=== PATIENT | female | born 1965 | race Caucasian/White ===

== ENCOUNTER 2016-11-07 19:34 | Emergency (ER) | payer SELFPAY ==
--- NOTE | ~2016-11-07 | ER ---
PATIENT'S NAME: BENNIE SALDANA [facility] AGE: 51 Y [address] ROOM: [place] [id number] LOCATION: [facility] ADMIT DATE: 11/07/2016 ER/Outpatient Report DISCHARGE DATE: 11/07/2016 FAMILY PHYSICIAN: , Unknown ATTENDING PHYSICIAN: Pk Gilbert Time of Arrival: 1929 hours. Time of Evaluation: 1929 hours. CHIEF COMPLAINT: Headache. HISTORY OF PRESENT ILLNESS: The patient is a 51-year-old female who presents to the emergency department today with chief complaint of headache. She reports that it started about 3 to 4 days prior to arrival. She has nausea, vomiting, abdominal pain, chest pain, she got diarrhea as well. She reports 6 episodes of diarrhea in the past 24 hours as well as 8 episodes of vomiting in the past 24 hours. She complains of neck pain. She reports subjective fevers and chills. Denies that this is the worst headache of her life. It is not sudden onset, it has progressively worsened. It feels like it is coming from her neck. It is a sharp-type pain. No thunderclap. PAST MEDICAL HISTORY: Anxiety, hypertension. PAST SURGICAL HISTORY: . SOCIAL HISTORY: The patient smokes half pack per day for 15 years. Drinks alcohol once in a while. Denies any illicit drug use. ALLERGIES: THE PATIENT DOES NOT KNOW HER ALLERGIES. MEDICATIONS: Please see list. PRIMARY CARE DOCTOR: In [place]. REVIEW OF SYSTEMS: All systems are reviewed by myself and are negative with the exception of those discussed in HPI and past medical history. PATIENT'S NAME: BENNIE SALDANA [facility] AGE: 51 Y [address] ROOM: [place] [address] LOCATION: [facility] ADMIT DATE: 11/07/2016 ER/Outpatient Report DISCHARGE DATE: 11/07/2016 FAMILY PHYSICIAN: Physician, Unknown ATTENDING PHYSICIAN: Pk Gilbert PHYSICAL EXAMINATION: VITAL SIGNS: Weight 56 kilograms, blood pressure 106/75, pulse 89, respiratory rate 16, temperature 98.2, oxygen saturation 97% on room air. GENERAL: The patient is a 51-year-old female who appears stated age, in no acute distress. She does have a smell of alcohol. HEENT: Head; normocephalic, atraumatic. Pupils are equal, round, and reactive to light. Extraocular motions are intact. Nares are patent bilaterally. TMs are clear. Oropharynx is clear. NECK: Supple. There is no nuchal rigidity. She does have some diffuse tenderness to palpation in bilateral paraspinal musculature, worse on the right. CARDIOVASCULAR: Regular rate and rhythm. No murmurs, rubs, or gallops. LUNGS: Clear to auscultation bilaterally. No wheezes, rales, or rhonchi. ABDOMEN: Soft, nontender, and nondistended. No rebound, rigidity, or guarding. MUSCULOSKELETAL: The patient moves all 4 extremities. NEUROLOGICAL: GCS 15. Alert and oriented. SKIN: Warm and dry. LABORATORY DATA AND X-RAYS: Labs and x-rays are obtained. CT scan of the brain and C-spine are obtained. I have discussed the results with the radiologist. CT scan of the brain is negative. CT scan of the C-spine shows degenerative changes. EKG is obtained, interpreted by myself at 1954 hours, shows sinus rhythm with a rate of 82, normal axis, normal interval; no ST elevation, ST depression, T-wave inversions. Lactate and procalcitonin are normal. CBC is normal. Coags are normal. CMP is unremarkable. LFTs normal. Cardiac enzymes are normal. Magnesium is normal. Alcohol is elevated at 0.268. IMPRESSION: 1. Acute cephalgia, suspect migraine type. 2. Alcohol intoxication. 3. Initial visit. EMERGENCY DEPARTMENT COURSE: The patient brought back to the examination room. Seen and evaluated by myself. IV is established. Laboratory analysis and imaging are obtained as described above. The patient is given Toradol 30 mg IV, a liter of normal saline, 10 mg of Compazine IV as well as 25 mg of Benadryl IV with improvement of the patient's symptoms. I have discussed results with the patient. I have written a prescription for Naprosyn for home. I have discussed return to care instructions including worsening symptoms or any other concerns to return to the emergency department as soon as possible. The patient is agreeable. She is without further questions at the time of disposition. The patient PATIENT'S NAME: BENNIE SALDANA [facility] AGE: 51 Y [address] ROOM: [place] [id number] LOCATION: [facility] ADMIT DATE: 11/07/2016 ER/Outpatient Report DISCHARGE DATE: 11/07/2016 FAMILY PHYSICIAN: Physician, Unknown ATTENDING PHYSICIAN: Pk Gilbert discharged home in good condition. DO JOSE GUADALUPE VELEZ/ai /[id number] d: 11/07/16 2315 t: 11/08/16 1903, OUTPATIENT REPORT
[2016-11-07 19:52] LABS: BASOPHIL % 0.2 %; EOSINOPHIL # 0.1 K/uL (0.0-0.5); EOSINOPHIL % 0.8 %; HEMATOCRIT 35.9 % (33.0-46.0); HEMOGLOBIN 12.5 g/dL (10.0-15.0); IMMATURE GRANULOCYTE % 0.2 %; LYMPHOCYTE # 2.1 K/uL (0.8-4.0); LYMPHOCYTE % 33.4 %; MCH 33.9 pg (27.0-34.0); MCHC 34.8 gm/dL (32.0-36.5); MCV 97.3 fl (83.0-98.0); MONOCYTE # 0.7 K/uL (0.0-1.0); MONOCYTE % 11.5 %; MPV 9.9 fl (9.4-12.4); NEUTROPHIL # (ANC) 3.3 K/uL (1.8-7.8); NEUTROPHIL % 53.9 %; NRBC % 0 /100WBC (0-0.00); PLATELET COUNT 220 K/uL (150-450); RBC 3.69 M/uL (3.50-5.50); RDW-CV 12.5 % (11.9-14.6); WBC 6.2 K/uL (4.0-11.0)
[2016-11-07 20:05] LABS: INR - (THERAPEUTIC) 0.97 (0.92-1.07); PROTIME 10.2 SECONDS (9.8-11.4); PTT 24 SECONDS (25-32)
[2016-11-07 20:13] LABS: ALBUMIN 3.4 gm/dL (3.5-5.0); ALK PHOS 96 IU/L (33-138); ALT 70 IU/L (12-78); ANION GAP 11.8 (10.0-19.0); AST 52 IU/L (10-40); BLOOD UREA NITROGEN 10 mg/dL (6-24); CALCIUM 7.9 mg/dL (8.5-10.5); CHLORIDE 98 mMol/L (96-110); CO2 27 mMol/L (22-32); CPK 75 IU/L (21-215); CREATININE 0.4 mg/dL (0.5-1.1); MAGNESIUM 2.1 mg/dL (1.8-2.6); POTASSIUM 3.8 mMol/L (3.7-5.1); SODIUM 133 mMol/L (135-145); TOTAL BILIRUBIN 0.5 mg/dL (0.0-1.5); TOTAL PROTEIN 6.6 g/dL (6.0-8.4)
[2016-11-07 21:14] LABS: BILIRUBIN URINE NEGATIVE (NEGATIVE); BLOOD URINE NEGATIVE /UL (NEGATIVE); COLOR URINE COLORLESS (YELLOW); GLUCOSE URINE NEGATIVE (NEGATIVE); KETONE URINE NEGATIVE (NEGATIVE); LEUKOCYTES URINE NEGATIVE /UL (NEGATIVE); NITRITE URINE NEGATIVE (NEGATIVE); PROTEIN URINE NEGATIVE (NEGATIVE); TURBIDITY URINE CLEAR (CLEAR); UROBILINOGEN URINE NORMAL (NORMAL)
[2016-11-07 21:32] LABS: COCAINE NEGATIVE (NEGATIVE); OPIATES NEGATIVE (NEGATIVE)
[2016-11-07 21:33] LABS: AMPHETAMINE NEGATIVE (NEGATIVE); BARBITURATE NEGATIVE (NEGATIVE)
== END 2016-11-07 22:04 | disposition disaster alternative care site (69) ==
LOC: GMED 19:34
PROVIDERS: Emergency Medicine
DX: R51 Headache (principal); F10.129 Alcohol abuse with intoxication, unspecified; I10 Essential (primary) hypertension; F41.9 Anxiety disorder, unspecified; F17.210 Nicotine dependence, cigarettes, uncomplicated; Z79.899 Other long term (current) drug therapy; Y90.0 Blood alcohol level of less than 20 mg/100 ml
CPT/HCPCS: G0480; J0780; J1200; J1885; J7030

== ENCOUNTER → 2016-12-02 | Outpatient (CLI) | payer OTHER | END | disposition disaster alternative care site (69) | LOC: GAMB 13:41 | DX: J11.1 Influenza due to unidentified influenza virus with other respiratory manifestations (principal); K92.1 Melena; F10.20 Alcohol dependence, uncomplicated; R11.2 Nausea with vomiting, unspecified; R19.7 Diarrhea, unspecified | CPT/HCPCS: A0425; A0427; J2405; J7030 ==

== ENCOUNTER → 2016-12-04 | Outpatient (CLI) | payer OTHER | END | disposition disaster alternative care site (69) | LOC: GAMB 06:41 | DX: R11.2 Nausea with vomiting, unspecified (principal); Z79.899 Other long term (current) drug therapy | CPT/HCPCS: A0425; A0427 ==

== ENCOUNTER 2016-12-16 16:34 | Emergency (ER) | payer OTHER ==
--- NOTE | ~2016-12-16 | ER ---
PATIENT'S NAME: HEATHER SALDANA [facility] AGE: 51 Y [address] ROOM: [place] [address] LOCATION: [facility] ADMIT DATE: 12/16/2016 ER/Outpatient Report DISCHARGE DATE: 12/16/2016 FAMILY PHYSICIAN: PHYSICIAN, NO ATTENDING PHYSICIAN: David Vazquez Time of Arrival: 1634 hours. Time of Evaluation: 1645 hours. CHIEF COMPLAINT: Dental pain. HISTORY OF PRESENT ILLNESS: This is a 51-year-old female, who presents to the ER, who states she has been having dental pain in her upper teeth for approximately one month. She states that she could feel holes behind her front teeth, and she has been trying to use some [id number] teeth fixing agents to help with the pain, but she is not able to get those products, and they are very well to help with that. She has been using ibuprofen and Tylenol for pain. She states she has been trying to call around to find dental care that will take plans, but she has been unsuccessful so far. She has not been running any fevers at home. The patient also states that she is living at [facility], and they have infestation of bedbugs. She states she has several bug bites to her body and wants to know if she could do about itching as well. ALLERGIES: UNKNOWN. MEDICATIONS: Please see medication list in nurse's notes. PAST MEDICAL HISTORY: Hypertension. She has had a and hand surgery. She is postmenopausal. SOCIAL HISTORY: Less than one pack a day for last 34 years. Denies any drug or alcohol use. REVIEW OF SYSTEMS: All systems were reviewed and negative with the exception of those discussed in the HPI. PHYSICAL EXAMINATION: VITAL SIGNS: Height 5 feet 2 inches stated, weight 56.2 kg taken, blood pressure is 171/100, pulse 89, respirations 14, temperature 98.4 degrees PATIENT'S NAME: CANDIS SALDANADI Rosemarie [facility] AGE: 51 Y [address] ROOM: [place] [address] LOCATION: [facility] ADMIT DATE: 12/16/2016 ER/Outpatient Report DISCHARGE DATE: 12/16/2016 FAMILY PHYSICIAN: PHYSICIAN, NO ATTENDING PHYSICIAN: David Vazquez tympanically, and saturations 97% on room air. Yessi Coma Score is 15. GENERAL: An alert, calm, well-developed female, in no acute distress. HEENT: Head: Normocephalic. Eyes: Pupils are equal and reactive to light. She does display moist mucous membranes. She does have widespread dental decay. She does have some dental caries noted to the posterior aspect of her front teeth. LUNGS: Clear to auscultation bilaterally. HEART: Regular rate and rhythm. SKIN: Shows multiple scattered bug bites throughout her body. None of them have induration and none of them have active drainage. LABORATORY DATA AND X-RAYS: None were done. IMPRESSION: 1. Dental pain. 2. Bug bites. ASSESSMENT AND PLAN: I did give the patient reassurance. I will dismiss her to home with prescriptions for amoxicillin and [place] to use as directed. She needs to eat soft foods. She may alternate her pain medication with ibuprofen if needed. I advised 1% hydrocortisone cream to the skin, and she needs to follow up with her dentist as soon as possible. The patient understands and agrees with care. TANIKA SANTILLAN PA-C FOR MD SHONA COLLADO/ai /[id number] d: 12/17/16 0003 t: 12/29/16 1056, OUTPATIENT REPORT
== END 2016-12-16 17:32 | disposition disaster alternative care site (69) ==
LOC: GMED 16:34
DX: K08.89 Other specified disorders of teeth and supporting structures (principal); L29.9 Pruritus, unspecified; F17.210 Nicotine dependence, cigarettes, uncomplicated; I10 Essential (primary) hypertension; Z79.82 Long term (current) use of aspirin; Z79.899 Other long term (current) drug therapy; Z98.890 Other specified postprocedural states; W57.XXXA Bitten or stung by nonvenomous insect and other nonvenomous arthropods, initial encounter

== ENCOUNTER 2016-12-19 10:58 | Emergency (ER) | payer OTHER ==
--- NOTE | ~2016-12-19 | ER ---
PATIENT'S NAME: HEATHER SALDANA [facility] AGE: 51 Y [address] ROOM: [place] [address] LOCATION: [facility] ADMIT DATE: 12/19/2016 ER/Outpatient Report DISCHARGE DATE: 12/19/2016 FAMILY PHYSICIAN: PHYSICIAN, NO ATTENDING PHYSICIAN: David Vazquez TIME SEEN: 1115 hours. HISTORY OF PRESENT ILLNESS: The patient is a 51-year-old female who has recently had problems with bedbug bites. She said she was seen at [facility] yesterday with a lesion on her heel which appeared to have a small blood vessel. The patient was concerned about a possible spider bite and they told her at [facility] if it got worse that she should come to the emergency room. She denies any significant pain in the area and the area is not open, still continues to itch. The patient has been using some Benadryl and topical steroid cream. ALLERGIES: NO MEDICINAL ALLERGIES. THE PATIENT IS ON HYPERTENSION MEDICINE, TRAZODONE, AND RISPERDAL. MEDICAL HISTORY: Hypertension, anxiety. SURGERIES: , right hand surgery. SOCIAL HISTORY: She is currently living at [place]. She is a smoker, half pack a day. REVIEW OF SYSTEMS: GENERAL: No recent fevers or chills. HEAD AND EENT: Denies headaches or sore throat. RESPIRATORY: Smoker, but no cough. GASTROINTESTINAL: She has had no abdominal cramping or vomiting. SKIN: Includes the bites from the bedbugs and the area on her left heel. OBJECTIVE FINDINGS: VITAL SIGNS: Blood pressure 154/87, her temperature is 97, her respiratory rate 20, pulse 77, O2 sats 99%. GENERAL APPEARANCE: Alert and cooperative. HEAD AND EENT: Oral membranes were moist. SKIN: There are several kind of raised annular papules going on a linear PATIENT'S NAME: CANDIS SALDANADI Rosemarie [facility] AGE: 51 Y [address] ROOM: [place] [address] LOCATION: [facility] ADMIT DATE: 12/19/2016 ER/Outpatient Report DISCHARGE DATE: 12/19/2016 FAMILY PHYSICIAN: PHYSICIAN, NO ATTENDING PHYSICIAN: David Vazquez pattern on her arm. There was also some on her neck and face. On the left heel, there was a small what appeared to be a blood blister about 1.5 cm. There was no significant redness. ASSESSMENT: 1. Suspected bedbug bites. 2. Blood blister to her left heel. PLAN: The patient requested a cortisone shot to have a relief. We put her on prednisone 20 mg b.i.d. for 5 days. Recommend continue the antihistamine. As far as the left heel, told her not to wearing shoes, keep any pressure off the area. If it continues to get bigger or painful to follow up in 48 hours. The patient verbalized understanding of her take-home instructions. RUBÉN STYLES FOR MD BIRDIE COLLADO/ai /[id number] d: 12/19/16 1708 t: 12/29/16 1056, OUTPATIENT REPORT
== END 2016-12-19 11:30 | disposition disaster alternative care site (69) ==
LOC: GMED 10:58
DX: R23.8 Other skin changes (principal); I10 Essential (primary) hypertension; F41.9 Anxiety disorder, unspecified; F17.210 Nicotine dependence, cigarettes, uncomplicated; Z98.890 Other specified postprocedural states; Z79.899 Other long term (current) drug therapy